=== PATIENT | male | born 1960 | race Caucasian/White ===

== ENCOUNTER → 2024-09-04 07:28 | Outpatient (REF) | payer OTHER, SELFPAY | LOC: MRI 3T 07:28 | PROVIDERS: ATTENDING PHYSICIAN Specialist; FAMILY PHYSICIAN Family Medicine | DX: R97.20 Elevated prostate specific antigen [PSA] (principal) | CPT/HCPCS: 72197; A9575 ==

== ENCOUNTER 2024-12-05 06:57 | Outpatient (RCR) | payer OTHER, SELFPAY | END 2024-12-05 23:59 | disposition home or self-care (01) | LOC: RPT 06:57 | PROVIDERS: ATTENDING PHYSICIAN Urology | DX: C61 Malignant neoplasm of prostate (principal); M62.89 Other specified disorders of muscle; Z73.6 Limitation of activities due to disability; R39.15 Urgency of urination | CPT/HCPCS: 97112; 97162; 97530 ==

== ENCOUNTER 2024-12-28 06:18 | Day surgery (SDC) | payer OTHER, SELFPAY ==
[2024-12-01 08:56] LABS: Hematocrit 45.3 % (39.0-52.0); Hemoglobin 15.2 g/dL (13.0-18.0); Mean Corp Hgb Conc. 33.6 g/dL (33.0-37.0); Mean Corpuscular Volume 90.4 fL (80.0-94.0); Platelet Count 138 10^3/uL (130-400); Red Cell Dist. Width 13.9 % (11.5-14.5)
[2024-12-01 09:31] LABS: Blood Urea Nitrogen 18 mg/dl (9-20); Calcium 9.6 mg/dl (8.4-10.2); Carbon Dioxide 27 mmol/L (22-30); Chloride 104 mmol/L (98-107); Glucose 92 mg/dl (70-99); Potassium 4.2 mmol/L (3.5-5.1); Sodium 137 mmol/L (135-145); eGFR > 60.00
[2024-12-01 13:54] VITALS: BMI 29.5
[2024-12-28] VITALS (10 sets, daily range): BP systolic 124–171; BP diastolic 64–84; BMI 29.5
[2024-12-28] MEDS: NORMOSOL-R/PLASMALYTE-A 1000 IV ×3 (11:07→19:30)
[2024-12-28 16:56] LABS: Hematocrit 42.7 % (39.0-52.0); Hemoglobin 14.4 g/dL (13.0-18.0)
[2024-12-28 17:20] LABS: Blood Urea Nitrogen 17 mg/dl (9-20); Calcium 8.5 mg/dl (8.4-10.2); Carbon Dioxide 25 mmol/L (22-30); Chloride 103 mmol/L (98-107); Estimated Creatinine Clearance 64 ml/min; Glucose 147 mg/dl (70-99); Potassium 4.9 mmol/L (3.5-5.1); Sodium 133 mmol/L (135-145); eGFR > 60.00
--- NOTE | 2024-12-28 18:00 | PTCARENOTE ---
pt admitted to 2S room 5 at 1800 via bed. pt drowsy. oriented to room, call novoa and plan of care with verbalized understanding. admission database and assessment completed as documented. at bedside. care ongoing.
[2024-12-28] MEDS: TORADOL IV (18:07)
[2024-12-28] MEDS: SENOKOT 17.2 MG PO (19:40)
[2024-12-28] MEDS: LOVENOX 40 MG SC (19:40)
[2024-12-28] MEDS: TORADOL 15 MG IV (19:40)
[2024-12-28] MEDS: ZESTRIL 10 MG PO (19:40)
[2024-12-28] MEDS: CRESTOR 10 MG PO (21:31)
[2024-12-29] MEDS: TORADOL 15 MG IV ×2 (02:20→09:12)
[2024-12-29 03:00] VITALS: BP 148/69
[2024-12-29] MEDS: POLYSPORIN/DOUBLE ANTIBIOTIC 1 APPLIC TOPICAL (03:17)
--- NOTE | 2024-12-29 03:20 | PTCARENOTE ---
Pt was awake and willing to walk around the unit a few times. I drained his Akins prior to the walk & noticed he had passed a few colts in the Akins catheter line. Pt stated he was not in pain. As he was about to get back in bed pt began leaking a
few drops of blood tinged urine. I gently hand irrigated 100cc of Sterile 0.9 NACL water in and out retrieving a broken blood clot. I also place the Polysporin Double Antibiotic Ointment around the tip of his penis. Pt tolerated the procedure well.
[2024-12-29] MEDS: SYNTHROID 100 MCG PO (05:08)
--- NOTE | 2024-12-29 06:22 | PTCARENOTE ---
Pt's Greene bag changed to a leg bag. Pt instructed on how to change from a greene bag to a leg bag. Pt may require reenforcement, will alert dayshift nurse.
[2024-12-29 07:40] VITALS: BP 135/62
[2024-12-29 07:57] LABS: Hematocrit 41.5 % (39.0-52.0); Hemoglobin 14.2 g/dL (13.0-18.0); Mean Corp Hgb Conc. 34.2 g/dL (33.0-37.0); Mean Corpuscular Volume 92.4 fL (80.0-94.0); Platelet Count 173 10^3/uL (130-400); Red Cell Dist. Width 13.5 % (11.5-14.5)
[2024-12-29 08:32] LABS: Blood Urea Nitrogen 20 mg/dl (9-20); Calcium 8.7 mg/dl (8.4-10.2); Carbon Dioxide 25 mmol/L (22-30); Chloride 99 mmol/L (98-107); Estimated Creatinine Clearance 64 ml/min; Glucose 137 mg/dl (70-99); Potassium 4.4 mmol/L (3.5-5.1); Sodium 132 mmol/L (135-145); eGFR > 60.00
--- NOTE | 2024-12-29 08:46 | W.PN.URO.CBU ---
Today's Communication / Plan
-
Discharge
Assessment / Plan
-
64M with prostate cancer
POD 1 s/p RALP/PLND
Discharge home with greene
ambulate
reg diet
Diagnosis
-
Date of Service: December 29, 2024
-
Patient Diagnosis: Prostate cancer
Post Op Day: 1 sp RALP
Subjective
-
harvinder diet
ambulating
pain controlled
Objective
-
Vital Signs
Temp Pulse Resp BP Pulse Ox
98.6 F 86 16 135/62 97
12/29/24 07:40 12/29/24 07:40 12/29/24 07:40 12/29/24 07:40 12/29/24 07:40
Intake and Output
12/28/24 12/29/24 12/30/24
06:59 06:59 06:59
Intake Total 2540 / 2540
Output Total 1400 / 1400
Balance 1140 / 1140
Intake:
Oral fluids 1440 / 1440
IV fluids (Total) 1100 / 1100
normosol 300 / 300
Output:
Urine, Greene 1400 / 1400
Laboratory Results
12/29/24 07:34
12/29/24 07:34
Physical Exam
-
General - well developed, well nourished, no acute distress
Chest - clear bilaterally
Abdomen - soft, non-tender
Greene in place clear urine
Skin - warm & dry with no rash
Neuro - AOx3, no motor deficits
Extremities - no clubbing, no cyanosis, no edema
Incision - clean, dry, slight bleeding from umbilical incision
Dressing - clean, dry
[2024-12-29] MEDS: SENOKOT 17.2 MG PO (09:12)
[2024-12-29] MEDS: ZESTRIL 10 MG PO (09:12)
--- NOTE | 2024-12-29 09:57 | CM ---
Cm reviewed medical records. Patient confirmed demographics. Patient lives independently with . Patient does not have a history of VN, SNF or DME. Patient is active with his PCP. Patient has medication coverage. Patient is agreeable to [facility].
Referral updated to [facility] Admission RN.
PLAN: Home with [facility]
--- NOTE | 2024-12-29 10:37 | VNURNOTE ---
Home Health Liaison met with patient at bedside to discuss [facility] nurse/therapy, visits, schedule and homebound status. Patient is agreeable and understands that visits at home will be 2-3 x per week to assess and teach medical and greene management.
Patient is aware that [facility] will contact them for start of care in 1-2 days after discharge from . Provided contact number for [facility].
[facility] referral completed in [facility] Port.
[2024-12-29 11:00] VITALS: BP 138/78
== END 2024-12-29 11:50 | disposition home or self-care (01) ==
LOC: SDS 06:18
PROVIDERS: ATTENDING PHYSICIAN Urology; FAMILY PHYSICIAN Family Medicine
DX: C61 Malignant neoplasm of prostate (principal)
CPT/HCPCS: 55866; 38571; 36415; 80048; 85014; 85018; 85027; 86850; 86900; 86901; 88305; 88307; 88309; 88331; 93005

== ENCOUNTER 2025-02-09 08:29 | Outpatient (RCR) | payer OTHER, SELFPAY | END 2025-02-09 23:59 | disposition home or self-care (01) | LOC: RPT 08:29 | PROVIDERS: ATTENDING PHYSICIAN Urology | DX: C61 Malignant neoplasm of prostate (principal); M62.89 Other specified disorders of muscle; Z73.6 Limitation of activities due to disability; R39.15 Urgency of urination; Z98.890 Other specified postprocedural states; Z90.79 Acquired absence of other genital organ(s) | CPT/HCPCS: 97110; 97112; 97164; 97530 ==

== ENCOUNTER 2025-02-28 06:57 | Outpatient (RCR) | payer OTHER, SELFPAY | END 2025-02-28 23:59 | disposition home or self-care (01) | LOC: RPT 06:57 | PROVIDERS: ATTENDING PHYSICIAN Urology | DX: C61 Malignant neoplasm of prostate (principal); M62.89 Other specified disorders of muscle; Z73.6 Limitation of activities due to disability; R39.15 Urgency of urination; Z98.890 Other specified postprocedural states; Z90.79 Acquired absence of other genital organ(s) | CPT/HCPCS: 97112; 97530 ==